=== PATIENT | male | born 1955 | race Caucasian/White ===

== ENCOUNTER 2016-04-19 12:59 | Emergency (ER) | payer MEDICARE ==
[2016-04-19] MEDS ORDERED: METOPROLOL TARTRATE 1 MG/ML 5ML VIAL ONE (14:04)
[2016-04-19 14:07] LABS: ABSOLUTE NEUTROPHIL COUNT 5.1 K/mm3 (1.8-7.7); BASO % 0.4 % (0.2-1.0); EOS # 0.1 (0.0-0.5); EOS % 1.3 % (0.9-2.9); HEMATOCRIT 45.4 % (32.0-52.0); HEMOGLOBIN 15.3 gm/l (14.0-18.0); IMM NEUT% 0.4 % (0-1); LYMPH # 1.5 (1.0-4.8); LYMPH % 20.4 % (15-45); MEAN CELL VOLUME 87.1 fl (80.0-94.0); MEAN CORPUSCULAR HEMOGLOBIN 29.4 pg (27.0-31.0); MEAN CORPUSCULAR HGB CONC 33.7 g/dl (33.0-37.0); MEAN PLATELET VOLUME 10.5 fl (7.4-10.4); MONO # 0.6 (0.0-0.8); MONO % 8.2 % (4-12); NEUT % 69.3 % (43-75); PLATELET COUNT 245 K/mm3 (130-400); RED CELL DISTRIBUTION WIDTH 13.2 % (11.5-14.5)
[2016-04-19 14:31] LABS: ALB/GLOB RATIO 1.4 (>1.0); ALBUMIN 3.9 gm/dL (3.5-5.7); CALCIUM 9.1 mg/dL (8.6-10.3)
[2016-04-19 14:33] LABS: TROPONIN I 0.02 ng/ml (0.0-0.06)
[2016-04-19 14:42] LABS: THYROID STIMULATING HORMONE 2.27 uIU/ml (0.34-5.60)
[2016-04-19] MEDS ORDERED: PROPOFOL 20 ML IV ONE (14:42)
[2016-04-19] MEDS ORDERED: KETAMINE HCL 50 MG/1 ML 10ML VIAL ONE (14:42)
[2016-04-19] MEDS ORDERED: SODIUM CHLORIDE 0.9% 1,000 ML ONE (14:48)
== END 2016-04-19 16:23 | disposition home or self-care (01) ==
LOC: ED 12:59
DX: I48.1 Persistent atrial fibrillation (principal); I50.9 Heart failure, unspecified; Z79.01 Long term (current) use of anticoagulants